=== PATIENT | male | born 1990 | race Caucasian/White ===

== ENCOUNTER 2018-07-04 21:28 | Emergency (ER) | payer OTHER ==
[~2018-07-04] VITALS: Ht 180.3 cm; Wt 160.0 kg
[~2018-07-04 21:28] MED LIST: NOCURR
[2018-07-04 22:07] VITALS: BP 112/79
[2018-07-04] MEDS ORDERED: LIDOCAINE 1% 10 ML VIAL INJ ONE (22:15)
== END 2018-07-04 22:48 | disposition left against medical advice (07) ==
LOC: EMS 21:32
DX: L03.115 Cellulitis of right lower limb (principal); L02.611 Cutaneous abscess of right foot; G43.909 Migraine, unspecified, not intractable, without status migrainosus; F17.210 Nicotine dependence, cigarettes, uncomplicated; F12.90 Cannabis use, unspecified, uncomplicated; F14.90 Cocaine use, unspecified, uncomplicated; F15.90 Other stimulant use, unspecified, uncomplicated
CPT/HCPCS: J3490